=== PATIENT | female | born 1980 | race Caucasian/White ===

== ENCOUNTER → 2018-01-04 15:25 | Outpatient (REF) | payer MEDICAID, SELFPAY ==
[2018-01-04 22:36] LABS: HCT 41.1 % (36.0-46.0); HGB 13.9 g/dL (12.0-15.5); Mean Corp. HGB Concentration 33.8 g/dL (32.0-36.0); Mean Corpuscular Hemoglobin 30.1 pg (27.0-33.0); Mean Platelet Volume 10.5 fL (8.0-11.0); Platelet Count 375 x1000/uL (130-400); RBC 4.62 m/cumm (4.00-5.20); RBC Distribution Width 12.3 % (11.7-14.6)
[2018-01-04 22:43] LABS: Iron 63 ug/dL (50-175)
[2018-01-04 22:56] LABS: Ferritin 46 ng/mL (8-388)
[2018-01-04 23:38] LABS: Hemoglobin A1C 5.2 % (4.5-6.2)
== END ==
LOC: NCHCN 15:25
PROVIDERS: PCP Family Medicine; Visit Provider Family Medicine
DX: D50.9 Iron deficiency anemia, unspecified (principal); Z86.32 Personal history of gestational diabetes
CPT/HCPCS: 85027; 82728; 83036; 83540

== ENCOUNTER 2023-03-07 20:55 | Outpatient (REF) | payer MEDICAID, SELFPAY ==
[2023-03-07 21:33] LABS: Abs Immature Grans 0.01 10^3/uL (0.0-0.06); Absolute Basophil Count 0.04 10^3/uL (0.0-0.2); Absolute Eosinophil Count 0.24 10^3/uL (0.0-0.7); Absolute Lymphocyte Count 3.12 10^3/uL (1.2-3.4); Absolute Monocyte Count 0.37 10^3/uL (0.1-0.8); Absolute Neutrophil Count 3.14 10^3/uL (1.2-6.7); Basophils % 0.6; Eosinophils % 3.5; HCT 40.6 % (36.0-46.0); HGB 13.7 g/dL (11.2-15.7); Immature Grans % 0.1; Lymphocytes % 45.1; MCH 29.9 pg (27.0-33.0); MCHC 33.7 % (32.0-36.0); MCV 89 fL (80-95); MPV 9.8 fL (8.0-11.0); Monocytes % 5.3; Neutrophils % 45.4; Platelet Count 395 10^3/uL (130-400); RBC 4.58 10^6/uL (3.93-5.22); RDW-SD 39.2 fL; WBC 6.92 10^3/uL (4.4-10.8)
[2023-03-07 21:37] LABS: Calculated LDL 169 mg/dL (<100); Cholesterol 261 mg/dL (<200); HDL Cholesterol 50 mg/dL (40-60); Triglyceride 211 mg/dL (<150)
[2023-03-07 21:55] LABS: Hemoglobin A1C 5.4 % (<5.7)
== END 2023-03-07 20:56 | disposition home or self-care (01) ==
LOC: NCHCN 20:55
PROVIDERS: PCP Family Medicine; Visit Provider Family Medicine
DX: R06.09 Other forms of dyspnea (principal)
CPT/HCPCS: 80061; 83036; 85025